=== PATIENT | female | born 1990 | race Caucasian/White ===

== ENCOUNTER 2022-02-23 22:53 | Inpatient (IN) | payer BC ==
[2022-02-23 23:21] VITALS: BMI 29.5
[2022-02-23] MEDS ORDERED: hydrALAZINE 20 MG/ML VIAL SLOW IVP PRN (23:52)
[2022-02-23] MEDS ORDERED: Acetaminophen 500 MG TAB PO PRN (23:53)
[2022-02-23] MEDS ORDERED: Morphine 10 MG/ML VIAL IM PRN (23:53)
[2022-02-23] MEDS ORDERED: Promethazine HCl 25 MG/ML VIAL IM PRN (23:54)
[2022-02-24] MEDS ORDERED: Lidocaine 1% (PF) 30 ML VIAL SC PRN (01:51)
[2022-02-24] MEDS ORDERED: Ibuprofen 800 MG TAB PO PRN (01:51)
[2022-02-24] MEDS ORDERED: Promethazine HCl 25 MG/ML VIAL IM PRN ×2 (01:51→03:49)
[2022-02-24] MEDS ORDERED: HYDROcodone/Acetaminophen 5/325 mg Tablet PO PRN (01:51)
[2022-02-24] MEDS ORDERED: hydrALAZINE 20 MG/ML VIAL SLOW IVP PRN ×2 (01:51→12:00)
[2022-02-24] MEDS ORDERED: Ondansetron PF 4 MG/2 ML Vial IVP PRN ×2 (01:51→03:49)
[2022-02-24] MEDS ORDERED: Lactated Ringer's 1,000 ML IV SCH ×2 (02:00)
[2022-02-24 02:30] LABS: Hemoglobin 10.6 g/dL (12.0-15.5); Mean Corpuscular HGB CONC 33.2 g/dL (32.0-36.0); Mean Corpuscular Hemoglobin 26.6 pg (27.0-33.0); Mean Corpuscular Volume 79.9 fl (81.6-98.3); Mean Platelet Volume 10.5 fl (7.4-10.4); Platelet Count 288 10x3/uL (150-450); RBC Distribution Width 12.1 % (11.5-14.5); Red Blood Cell (RBC) Count 3.99 10x6/uL (3.90-5.03); White Blood Cell (WBC) Count 9.2 10x3/uL (3.5-10.5)
[2022-02-24] MEDS ORDERED: Fentanyl 2 mcg/Bup 0.1% Cadd 100 ML ONE (02:32)
[2022-02-24 02:53] LABS: Syphilis Antibody Nonreactive (Nonreactive); Syphilis Antibody Index 0.04 S/CO (<1.00 Non-Reactive)
[2022-02-24 02:54] LABS: HBSAg Index 0.22 S/CO (0-0.99); Hep B Surf Ag Non-Reactive S/CO (NonReactive)
[2022-02-24] MEDS ORDERED: Naloxone HCl 0.4 mg/ml Vial IVP PRN ×2 (03:49)
[2022-02-24] MEDS ORDERED: diphenhydrAMINE 50 MG/ML VIAL IVP PRN (03:49)
[2022-02-24] MEDS ORDERED: Moisturizing Cream (Eucerin) 113 GM JAR TOP PRN (03:49)
[2022-02-24] MEDS ORDERED: Lactated Ringer's 500 ML IV PRN (03:49)
[2022-02-24] MEDS ORDERED: Acetaminophen 325 MG TAB PO PRN (03:49)
[2022-02-24] MEDS ORDERED: ePHEDrine Sulfate 50 MG/10 ML VIAL SLOW IVP PRN (03:49)
[2022-02-24] MEDS ORDERED: Communication Order-Pharmacy FS SCH (04:00)
[2022-02-24] MEDS ORDERED: Fentanyl 2 mcg/Bupivacaine 0.1% Cassette 100 ML EPIDURAL SCH (04:00)
[2022-02-24 05:02] LABS: SARS-CoV-2 NAA Rapid Test Not Detected (NotDetected)
[2022-02-24] MEDS: NS w/ Oxytocin 30 units 500 ML IV SCH ×2 (07:08→10:56)
[2022-02-24] MEDS ORDERED: Boostrix 0.5 ML (Tdap) VIAL (>/=7 yrs of age) IM ONE (12:00)
[2022-02-24] MEDS ORDERED: Bisacodyl 10 MG SUPP PR PRN (12:00)
[2022-02-24] MEDS ORDERED: Milk Of Magnesia 30 ML UDCUP PO PRN (12:00)
[2022-02-24] MEDS: Ferrous Sulfate 325 MG TAB PO SCH (16:57)
[2022-02-24] MEDS: Ibuprofen 600 MG TAB PO PRN (19:22)
[2022-02-24] MEDS: Docusate 100 MG CAP PO SCH (20:33)
[2022-02-25] MEDS: Ibuprofen 600 MG TAB PO PRN ×2 (02:10→08:38)
[2022-02-25 07:02] LABS: Hemoglobin 10.5 g/dL (12.0-15.5)
[2022-02-25] MEDS: Ferrous Sulfate 325 MG TAB PO SCH ×2 (07:07→13:30)
[2022-02-25] MEDS: Docusate 100 MG CAP PO SCH (08:37)
[2022-02-25 09:30] VITALS: BP 117/58; TEMP 98.1
[2022-02-25] MEDS ORDERED: Benzocaine-Menthol 82.5 ML CAN TOP PRN (09:38)
== END 2022-02-25 15:55 | disposition home or self-care (01) | DRG 807 ==
LOC: CSHLD/OP 22:53 → CSHLD 02-24 01:51 → CSHPED 02-24 12:20
PROVIDERS: ADMIT Obstetrics & Gynecology; ATTEND Obstetrics & Gynecology
PROC: 10E0XZZ Delivery of Products of Conception, External Approach (ICD-10-PCS; principal; 2022-02-24)
PROC: 0KQM0ZZ Repair Perineum Muscle, Open Approach (ICD-10-PCS; 2022-02-24)
DX: O70.1 Second degree perineal laceration during delivery (principal); Z37.0 Single live birth; Z20.822 Contact with and (suspected) exposure to COVID-19; Z3A.39 39 weeks gestation of pregnancy; Z90.89 Acquired absence of other organs
CPT/HCPCS: 51702; 85014; 85018; 85027; 86762; 86780; 86850; 86900; 86901; 87340; 99285; J2590; U0002